=== PATIENT | male | born 1980 | race Caucasian/White ===

== ENCOUNTER → 2016-11-21 | Emergency (ER) | payer OTHER ==
[~2016-11-21] MED LIST: Dexamethasone 4 mg/ml Vial ONE
== END ==
LOC: BURERS 14:31
DX: J02.9 Acute pharyngitis, unspecified (principal); G43.909 Migraine, unspecified, not intractable, without status migrainosus; J45.909 Unspecified asthma, uncomplicated; F41.9 Anxiety disorder, unspecified; F17.210 Nicotine dependence, cigarettes, uncomplicated
CPT/HCPCS: 99282; J1100

== ENCOUNTER 2016-11-28 20:46 | Emergency (ER) | payer OTHER ==
[2016-11-28] MEDS ORDERED: Fluorescein Opthalmic Strip ONE (20:57)
[2016-11-28] MEDS ORDERED: Tetracaine HCl 0.5% Ophth Soln 2 ML Bottle ONE (20:57)
[2016-11-28] MEDS ORDERED: Tobramycin Sulfate 0.3% Ophth Susp 5 ml Bottle ONE (21:04)
== END 2016-11-28 21:23 | disposition home or self-care (01) ==
LOC: BURERS 20:46
DX: S05.02XA Injury of conjunctiva and corneal abrasion without foreign body, left eye, initial encounter (principal); F43.10 Post-traumatic stress disorder, unspecified; G43.909 Migraine, unspecified, not intractable, without status migrainosus; J45.909 Unspecified asthma, uncomplicated; F41.9 Anxiety disorder, unspecified; F17.210 Nicotine dependence, cigarettes, uncomplicated; X58.XXXA Exposure to other specified factors, initial encounter
CPT/HCPCS: 99283

== ENCOUNTER 2016-12-03 22:28 | Emergency (ER) | payer OTHER ==
[2016-12-03] MEDS ORDERED: Diazepam 5 MG TAB ONE (22:45)
[2016-12-03] MEDS ORDERED: predniSONE 20 MG TAB ONE (22:46)
[2016-12-03] MEDS ORDERED: Ketorolac Tromethamine 60 MG/2 ML VIAL ONE (22:46)
== END 2016-12-03 23:02 | disposition home or self-care (01) ==
LOC: BURERS 22:28
DX: M54.42 Lumbago with sciatica, left side (principal); L25.9 Unspecified contact dermatitis, unspecified cause; G43.909 Migraine, unspecified, not intractable, without status migrainosus; J45.909 Unspecified asthma, uncomplicated; F41.9 Anxiety disorder, unspecified; F17.210 Nicotine dependence, cigarettes, uncomplicated
CPT/HCPCS: 96372; J1885; J7506